=== PATIENT | male | born 1970 | race Caucasian/White ===

== ENCOUNTER → 2022-06-03 06:29 | Outpatient (CLI) | payer OTHER, SELFPAY ==
[2022-06-02 18:42] LABS: Basophils # 0.1 K/mm3 (0-0.2); Basophils % 0.7 % (0.1-2.0); Eosinophils # 0.2 K/mm3 (0.0-0.4); Eosinophils % 2.7 % (0.1-12.0); Hematocrit 47.3 % (42.0-52.0); Hemoglobin 14.8 g/dL (14.1-18.0); Lymphocytes # 1.8 K/mm3 (0.7-4.5); Lymphocytes % 25.6 % (10-50); Mean Corpuscular HGB Conc 31.3 g/dL (31.8-35.4); Mean Corpuscular Hemoglobin 29.7 pg (27.0-31.2); Mean Corpuscular Volume 94.9 fl (80-94); Mean Platelet Volume 11.5 fl (7.4-10.4); Monocytes # 0.7 K/mm3 (0.1-1.0); Monocytes % 9.2 % (1.7-9.3); Neutrophils # 4.4 K/mm3 (1.8-7.8); Neutrophils % 61.8 % (37.0-80.0); Platelet Count 235 K/mm3 (142-424); Red Blood Count 4.98 M/mm3 (4.60-6.20); Red Cell Distribution Width 12.8 % (11.5-17.5); White Blood Count 7.1 K/mm3 (4.8-10.8)
[2022-06-02 18:46] LABS: Alanine Aminotransferase 31 U/L (12-78); Albumin Level 4.1 g/dl (3.5-5.0); Albumin/Globulin Ratio 1.6 (1.1-1.8); Alkaline Phosphatase 153 U/L (38-126); Anion Gap 9.4 mEq/L (5-15); Aspartate Amino Transferase 39 U/L (17-59); Bilirubin,Total 0.5 mg/dl (0.2-1.3); Blood Urea Nitrogen 17 mg/dl (9-20); Calcium 9.1 mg/dl (8.4-10.2); Carbon Dioxide 30 mmol/L (22.0-30.0); Chloride 104 mmol/L (98-107); Chol/HDL Ratio 6.2 (1-3.5); Cholesterol 216 mg/dl (140-200); Estimated Glomerular Filt Rate 102 ml/min (>60); GFR (African American) 123 ML/MIN (>60); Globulin 2.6 g/dL (1.3-3.2); Glucose 106 mg/dl (74-100); HDL Cholesterol 35 mg/dl (40-60); Potassium 4.4 mmoL/L (3.5-5.1); Sodium 139 mmol/L (136-145); Total Protein,Serum 6.7 g/dl (6.3-8.2); Triglycerides 279 mg/dl (30-150); VLDL Cholesterol 56 mg/dL (0-40)
[2022-06-02 19:16] LABS: Prostate Specific Ag Screen 0.8 ng/ml (0.0-4.0); Thyroid Stimulating Hormone 1.54 uIU/mL (0.465-4.68)
== END ==
PROVIDERS: PCP Nurse Practitioner; Visit Provider Nurse Practitioner
DX: F41.8 Other specified anxiety disorders (principal); Z13.220 Encounter for screening for lipoid disorders; Z79.899 Other long term (current) drug therapy; Z12.5 Encounter for screening for malignant neoplasm of prostate
CPT/HCPCS: 80053; 80061; 84443; 85025; G0103